=== PATIENT | male | born 1940 | race Caucasian/White ===

== ENCOUNTER 2019-04-30 11:52 | Emergency (ER) | payer MEDICARE, OTHER ==
[2019-04-30] MEDS ORDERED: IPRATROPIUM/ALBUTEROL 0.5-2.5 MG/3 ML AMPUL NEB ONE (12:14)
--- NOTE | 2019-04-30 12:19 | ER Document Report ---
ED Medical Screen (RME) - General Chief Complaint: Breathing Difficulty Stated Complaint: COUGHT,BREATHING PROBLEMS Time Seen by Provider: 04/30/19 12:07 Primary Care Provider: MICHELLE COKER MD [Primary Care Provider] - Follow up as needed TRAVEL OUTSIDE OF THE [place] IN LAST 30 DAYS: No - HPI Notes: 04/30/19 12:14 6-year-old male with a history of A. fib who is on Eliquis presents to the emergency room for evaluation of difficulty breathing, shortness of breath with left-sided chest pain. Cough started approximately 5 days ago, he was seen by his primary care office on Saturday which they prescribed him a Z-Shahid and guaifenesin with hydrocodone, is not helping his cough, symptoms are becoming progressively worse. Denies any pedal edema. I have greeted and performed a rapid initial assessment of this patient. A comprehensive ED assessment and evaluation of the patient, analysis of test results and completion of the medical decision making process will be conducted by additional ED providers. PHYSICAL EXAMINATION: GENERAL: Well-appearing, well-nourished and in no acute distress. HEAD: Atraumatic, normocephalic. EYES: Pupils equal round extraocular movements intact, conjunctiva are normal. ENT: Nares patent NECK: Normal range of motion LUNGS: diminished breath sounds in upper lobes. No respiratory distress Musculoskeletal: Normal range of motion NEUROLOGICAL: Normal speech, normal gait. PSYCH: Normal mood, normal affect. SKIN: Warm, Dry, normal turgor, no rashes or lesions noted. - Related Data Allergies/Adverse Reactions: No Known Allergies Allergy (Verified 04/30/19 12:06) Past Medical History - Social History Chew tobacco use (# tins/day): No Frequency of alcohol use: None Drug Abuse: None Physical Exam - Vital signs Vitals: Temp Pulse Resp BP Pulse Ox 98.0 F 61 18 148/72 H 98 04/30/19 11:58 04/30/19 11:58 04/30/19 11:58 04/30/19 11:58 04/30/19 11:58 Course - Vital Signs Vital signs: Temp Pulse Resp BP Pulse Ox 98.0 F 61 18 148/72 H 98 04/30/19 12:07 04/30/19 12:07 04/30/19 12:07 04/30/19 12:07 04/30/19 12:07 Doctor's Discharge - Discharge Referrals: MICHELLE COKER MD [Primary Care Provider] - Follow up as needed
[2019-04-30 12:50] LABS: APPEARANCE,URINE SLIGHTLY-CLOUDY; BILIRUBIN,URINE NEGATIVE (NEGATIVE); COLOR,URINE YELLOW; GLUCOSE, URINE NEGATIVE (NEGATIVE); KETONES,URINE NEGATIVE (NEGATIVE); PROTEIN,URINE NEGATIVE (NEGATIVE); URINE SPECIFIC GRAVITY 1.012
[2019-04-30 13:04] LABS: ABSOLUTE EOSINOPHILS # (AUTO) 0.2 10^3/uL (0.0-0.6); ABSOLUTE LYMPHOCYTES (AUTO) 1.1 10^3/uL (0.5-4.7); ABSOLUTE MONOCYTES (AUTO) 0.5 10^3/uL (0.1-1.4); ABSOLUTE NEUT (AUTO) 2.1 10^3/uL (1.7-8.2); BASOPHILS % (AUTO) 0.9 % (0-2); EOSINOPHILS % (AUTO) 4.8 % (0-6); HEMATOCRIT 37.2 % (37.9-51.0); HEMOGLOBIN 12.8 g/dL (13.5-17.0); LYMPHOCYTES % (AUTO) 28.1 % (13-45); MEAN CORPUSCULAR HEMOGLOBIN 32.7 pg (27.0-33.4); MEAN CORPUSCULAR HGB CONC 34.3 g/dL (32.0-36.0); MEAN CORPUSCULAR VOLUME 95 fl (80-97); MONOCYTES % (AUTO) 13.6 % (3-13); PLATELET COUNT 139 10^3/uL (150-450); RED BLOOD COUNT 3.91 10^6/uL (4.35-5.55); SEGMENTED NEUTROPHILS % (AUTO) 52.6 % (42-78); TOTAL CELLS COUNTED % (AUTO) 100 %
[2019-04-30 13:09] LABS: INTERNATIONAL RATION (INR) 1.13; PROTHROMBIN TIME 14.6 SEC (11.4-15.4)
[2019-04-30 13:10] LABS: PARTIAL THROMBOPLASTIN TIME 31.2 SEC (23.5-35.8)
--- NOTE | 2019-04-30 13:19 | RADIOLOGY REPORT (SQ) ---
EXAM DESCRIPTION: CHEST SINGLE VIEW COMPLETED DATE/TIME: 04/30/2019 1:10 pm REASON FOR STUDY: cp w/ sob COMPARISON: None. EXAM PARAMETERS: NUMBER OF VIEWS: One view. TECHNIQUE: Single frontal radiographic view of the chest acquired. RADIATION DOSE: NA LIMITATIONS: None. FINDINGS: LUNGS AND PLEURA: Right infrahilar ill-defined opacity. No pleural effusion or pneumothor ax. MEDIASTINUM AND HILAR STRUCTURES: No masses. Contour normal. HEART AND VASCULAR STRUCTURES: Enlarged cardiac silhouette. Aortic atherosclerosis. BONES: No acute findings. HARDWARE: None in the chest. OTHER: No other significant finding. IMPRESSION: Enlarged cardiac silhouette with ill-defined right infrahilar opacity, possibly atelecta sis or infection. TECHNICAL DOCUMENTATION: JOB ID: [id number] [employer]- All Rights Reserved Reading location - IP/workstation name: [email or web address]
[2019-04-30 13:21] LABS: ALBUMIN 3.8 g/dL (3.5-5.0); ALKALINE PHOSPHATASE 94 U/L (38-126); ANION GAP 11 (5-19); ASPARTATE AMINO TRANSFERASE 28 U/L (17-59); BILIRUBIN,DIRECT 0.1 mg/dL (0.0-0.4); BILIRUBIN,TOTAL 1.4 mg/dL (0.2-1.3); BLOOD UREA NITROGEN 17 mg/dL (7-20); CALCIUM 9.3 mg/dL (8.4-10.2); CARBON DIOXIDE 26 mmol/L (22-30); CHLORIDE 101 mmol/L (98-107); GLUCOSE 98 mg/dL (75-110); POTASSIUM 4.6 mmol/L (3.6-5.0)
[2019-04-30 13:33] LABS: NT PRO BNP 2660 pg/mL (<450)
[2019-04-30 13:34] LABS: TROPONIN I < 0.012 ng/mL
[2019-04-30] MEDS ORDERED: LEVOFLOXACIN 750 MG/D5W RTU 750 MG/150 ML RTUPB IV ONE (14:07)
--- NOTE | 2019-04-30 15:27 | ER Document Report ---
ED General - General Chief Complaint: Breathing Difficulty Stated Complaint: COUGHT,BREATHING PROBLEMS Time Seen by Provider: 04/30/19 12:07 Primary Care Provider: MICHELLE COKER MD [NO LOCAL MD] - Follow up as needed TRAVEL OUTSIDE OF THE [place] IN LAST 30 DAYS: No - HPI Notes: Patient is an 78-year-old male with a history of atrial fibrillation who presents emergency department for evaluation of cough and shortness of breath. He has had a cough for about 10 days. It seems to be generally worsening. It is intermittently productive. No fevers or chills. No nausea or vomiting. He states he started to get short of breath about a week ago. It seems to be getting worse. He states now, over the last 24 to 48 hours, has been waking up short of breath in the middle of the night. He denies any orthopnea. No weight gain. No peripheral edema. No associated chest tightness or pain. He saw his primary care physician last week, who started him on Hycodan and Zithromax. - Related Data Allergies/Adverse Reactions: No Known Allergies Allergy (Verified 04/30/19 12:06) Home Medications: Eliquis, enalapril Past Medical History - General Information source: Patient - Social History Smoking Status: Never Smoker Chew tobacco use (# tins/day): No Frequency of alcohol use: None Drug Abuse: None Family History: Reviewed & Not Pertinent Patient has suicidal ideation: No Patient has homicidal ideation: No - Past Medical History Cardiac Medical History: Reports: Hx Atrial Fibrillation, Hx Hypertension Review of Systems - Review of Systems Constitutional: No symptoms reported EENT: No symptoms reported Cardiovascular: See HPI Gastrointestinal: No symptoms reported Genitourinary: No symptoms reported Musculoskeletal: No symptoms reported Skin: No symptoms reported Neurological/Psychological: No symptoms reported Physical Exam - Vital signs Vitals: Temp Pulse Resp BP Pulse Ox 98.0 F 61 18 148/72 H 98 04/30/19 11:58 04/30/19 11:58 04/30/19 11:58 04/30/19 11:58 04/30/19 11:58 - Notes Notes: Vital signs reviewed, please refer to chart. Head is normocephalic, atraumatic. Pupils equal round, reactive to light. Neck is supple without meningismus. Heart is regular rate and rhythm. Lungs reveal mild expiratory wheeze in ritchie ateral bases, with scattered rhonchi. Abdomen is soft, nontender, normoactive bowel sounds throughout. Extremities without cyanosis, clubbing. Posterior calves are nontender. Peripheral pulses are equal. Skin is warm and dry. Patient is awake, alert, neurological exam is nonfocal. Course - Re-evaluation Re-evalutation: 04/30/19 15:23 Patient presents to the emergency department for evaluation. He has a known history of atrial fibrillation, is anticoagulated. He had a work-up was ordered through triage. Patient's proBNP was moderately elevated, but he does not have significant edema, he does not have weight gain, he does not have pulmonary vascular congestion. He is 98 to 99% on room air. His heart rate, however, is in the range of 44-60. He denies any chest pain, no dizziness. He has had some dyspnea with exertion, that he has been relating to the cough. Work-up here failed to reveal any significant leukocytosis. He has abnormal renal function, but I am unsure as to his baseline creatinine. He does have findings consistent with a pneumonia on chest x-ray. He is given a dose of IV Levaquin. Given his abnormal renal function, I am going to recommend that he be treated every other day with Levaquin for appropriate outpatient pneumonia treatment. Patient is unaware of his resting heart rate. Certainly a low heart rate may be caused by his Hycodan syrup. I did strongly advised him to quit taking that medication and follow-up closely with cardiology. I did speak with Dr. Levy, on-call coal conveyor operator, about this patient. He states that it is likely that this patient has atrial fibrillation with slow ventricular response, likely AV magdalena dysfunction. He states that in the absence of significant chest pain, abnormal cardiac enzymes, ischemic changes on EKG, or significant dizziness, it is appropriate at this point to follow-up as an outpatient in regards to his bradycardia. I explained this all in great detail to the patient. Patient voiced understanding. - Vital Signs Vital signs: Temp Pulse Resp BP Pulse Ox 98.2 F 53 L 16 130/84 H 96 04/30/19 16:29 04/30/19 16:29 04/30/19 16:29 04/30/19 16:29 04/30/19 16:29 - Laboratory Result Diagrams: 04/30/19 12:50 04/30/19 12:50 Laboratory results interpreted by me: 04/30/19 04/30/19 04/30/19 12:30 12:50 12:50 RBC 3.91 L Hgb 12.8 L Hct 37.2 L Plt Count 139 L [place] % (Auto) 13.6 H Creatinine 1.48 H Est GFR ( Amer) 55 L Est GFR (MDRD) Non-Af 46 L Total Bilirubin 1.4 H NT-Pro-B Natriuret Pep Urine Urobilinogen 2.0 H 04/30/19 12:50 RBC Hgb Hct Plt Count [place] % (Auto) Creatinine Est GFR ( Amer) Est GFR (MDRD) Non-Af Total Bilirubin NT-Pro-B Natriuret Pep 2660 H Urine Urobilinogen - Diagnostic Test Radiology reviewed: Image reviewed, Reports reviewed Radiology results interpreted by me: 04/30/19 15:27 Chest X-Ray 04/30/19 12:13 IMPRESSION: Enlarged cardiac silhouette with ill-defined right infrahilar opacity, possibly atelectasis or infection. - EKG Interpretation by Me Additional EKG results interpreted by me: 04/30/19 15:27 Atrial fibrillation with a rate of 53 bpm. Left axis deviation. Nonspecific ST changes, but no acute changes concerning for ischemia or infarction. No old studies available for comparison. Discharge - Discharge Clinical Impression: Atrial fibrillation with slow ventricular response, Pneumonia Condition: Stable Disposition: HOME, SELF-CARE Instructions: Pneumonia ([facility]) Additional Instructions: Your chest x-ray showed pneumonia. Please take the antibiotic as prescribed, every other day, starting on Saturday. Albuterol as needed for difficulty breathing. Your heart rates today were between 44 and 60. This may be your normal, but it deserves further evaluation. Please discuss your waking in the middle the night short of breath, as well as a slow heart rate, with your coal conveyor operator, and arrange outpatient follow-up as soon as possible. If you develop dizziness, chest pain, increased difficulty breathing, or any other new or concerning symptoms, please return immediately to the emergency department for evaluation. Prescriptions: Levofloxacin [Levaquin 750 mg Tablet] 750 mg PO ASDIR #2 tablet Albuterol Sulfate [Proair HFA Inhalation Aerosol 8.5 gm MDI] 2 puff IH Q4H PRN #1 mdi PRN Reason: Referrals: MICHELLE COKER MD [NO LOCAL MD] - Follow up as needed
[2019-04-30] MEDS ORDERED: ALBUTEROL SULFATE HFA (90 MCG/PUFF) 8 GM MDI (1 MDI/ER DISP) IH PRN (15:31)
[2019-04-30 15:41] VITALS: BP 130/84
--- NOTE | 2019-04-30 16:52 | EKG REPORT ---
SEVERITY:- ABNORMAL ECG - ATRIAL FIBRILLATION LEFT ANTERIOR FASCICULAR BLOCK BORDERLINE T ABNORMALITIES, INFERIOR LEADS : Confirmed by: Markie Hayden MD 30-Apr-2019 16:52:20
== END 2019-04-30 16:29 | disposition home or self-care (01) ==
LOC: ER 11:52
DX: J18.9 Pneumonia, unspecified organism (principal); I48.91 Unspecified atrial fibrillation; Z79.01 Long term (current) use of anticoagulants; R00.1 Bradycardia, unspecified; R05 Cough; R06.02 Shortness of breath; R06.2 Wheezing; R94.4 Abnormal results of kidney function studies; I10 Essential (primary) hypertension; Z79.899 Other long term (current) drug therapy
CPT/HCPCS: 93005; 36415; 87040; 85025; 85610; 85730; 80053; 81001; 84484; 83880; 71045; 93010; J1956; A9270 ×2; 94640; 96365; 99285; J3490; J7620